=== PATIENT | female | born 1985 | race Two or more races ===

== ENCOUNTER 2018-07-09 21:10 | Emergency (ER) | payer OTHER ==
[~2018-07-09] VITALS: Ht 157.5 cm; Wt 57.2 kg
[~2018-07-09 21:10] MED LIST: ABILIFY2 MG; BUSPAR30 MG; CIPRO500 MG PO; DEPAKOTE ER500 MG; KETO10TA2 PO; PRILOSEC40 MG; PROSAC; ZANTAC300 MG; ZYPREXA; [UNRECOGNIZED DRUG - OTHER]
== END 2018-07-10 10:02 | disposition home or self-care (01) ==
LOC: ER 21:10
DX: K59.09 Other constipation (principal); R10.32 Left lower quadrant pain

== ENCOUNTER 2019-08-31 18:46 | Emergency (ER) | payer OTHER ==
[~2019-08-31] VITALS: Ht 154.9 cm; Wt 65.8 kg
== END 2019-08-31 23:48 | disposition home or self-care (01) ==
LOC: ER 18:46
DX: H66.93 Otitis media, unspecified, bilateral (principal); R05 Cough; R07.89 Other chest pain

== ENCOUNTER 2020-02-27 06:33 | Emergency (ER) | payer OTHER ==
[~2020-02-27] VITALS: Ht 162.6 cm; Wt 59.0 kg
[2020-02-27] MEDS ORDERED: ARIPIPRAZOLE10 MG PO (06:40)
[2020-02-27] MEDS ORDERED: DIVALPROEX SOD500 MG PO (06:40)
[2020-02-27] MEDS ORDERED: ULTRAM50 MG PO (11:55)
[2020-02-27] MEDS ORDERED: KETO10TA2 PO (11:55)
== END 2020-02-27 13:09 ==
LOC: ER 06:33
DX: N83.291 Other ovarian cyst, right side (principal); R10.31 Right lower quadrant pain; Z20.828 Contact with and (suspected) exposure to other viral communicable diseases

== ENCOUNTER 2022-09-17 11:41 | Inpatient (IN) | payer OTHER ==
[~2022-09-17] VITALS: Ht 157.5 cm; Wt 63.5 kg
[~2022-09-17 11:41] MED LIST changes: +ARIPIPRAZOLE10 MG PO; +DIVALPROEX SOD500 MG PO; +ULTRAM50 MG PO
[2022-09-17] MEDS ORDERED: LEVOTHYROXINE25 MCG (11:46)
--- NOTE | 2022-09-17 11:48 | NUR ---
PTE ALERTA Y ORIENTADA POR SANTANA ESFERAS CON BUEN PATRON RESPIRATORIO. SE OBSERVA ANSIOSA. REFIERE QUE ESTABA EN LA DE UN FAMILIAR CUANDO EMPEZO A TENER UN SEIZURE, TUVO 3 EP DE VOMITOS Y TIENE DOLOR ABDOMINAL. PTE CON HX DE EPILEPSIA
--- NOTE | 2022-09-17 12:42 | NUR ---
HARSHIL WRAY ORIENTA A FAMILIAR SOBRE EL TRATAMIENTO ORDENADO POR EL DR REMY PTE ORIENTADA EN PERSONA HARSHIL CHAPIN REALIZA MUESTRAS DE LABORATORIO Y ADMINISTRA MEDICAMENTO JAYA ORDENADO.
--- NOTE | 2022-09-17 16:16 | NUR ---
PACIENTE ESPERANDO POR FAMILIAR PARA FIRMAR EL THOMAS
--- NOTE | 2022-09-17 23:03 | NUR ---
SE RECIBE PACIENTE FEMENINA ALERTA Y ORIENTADA X3 EN CAMILL #10 CON BARRANDAS ELEVADAS. ARE DE VENOPUNCION PATENTE VIVIAN DE EDEMA Y ENROJECIMIENTO. SE LE LIZZY EN TODO MOMENTO PRIEVACIDAD Y SEGURIDAD.
--- NOTE | 2022-09-18 02:18 | NUR ---
PACIENTE ALERTA Y ORIENTADA X3. SE ORIENTA SOBRE TX A RECIBIR Y REFIRIO ENTENDER. SE ADMINISTRA MEDICAMENTOS ORDENADOS POR MD. SE MANTIENE BAJO OBSERVACION POR CAMBIOS SIGNIFICATIVOS. PACIENTE CONSULTADA CON CIRUJANO.
== END 2022-09-24 15:00 | disposition home or self-care (01) | DRG 694 ==
LOC: ER 11:41 → SURH 09-18 13:42
PROVIDERS: ADMIT Internal Medicine; ATTEND Internal Medicine
DX: N20.0 Calculus of kidney (principal); G40.802 Other epilepsy, not intractable, without status epilepticus; F79 Unspecified intellectual disabilities; E03.9 Hypothyroidism, unspecified

== ENCOUNTER 2025-01-12 10:51 | Emergency (ER) | payer OTHER ==
[~2025-01-12] VITALS: Ht 157.5 cm; Wt 73.9 kg
[~2025-01-12 10:51] MED LIST changes: +LEVOTHYROXINE25 MCG
[2025-01-12 11:35] VITALS: BP 128/89; O2SAT 98
[2025-01-12] MEDS ORDERED: KETOROLAC TROMETHAMINE 30 MG VIAL IM ONE (12:00)
[2025-01-12] MEDS ORDERED: KETOROLAC TROMETHAMINE 30 MG VIAL ONE (12:31)
[2025-01-12 12:45] LABS: BASO % 0.4 % (0.1-1.2); EOS # 0.04 (0.04-0.54); EOS % 0.5 % (0.7-7.0); LYMPH # 2.52 (1.18-3.74); LYMPH % 30.7 % (19.3-53.1); MEAN PLATELET VOLUME 12.10 fl (9.4-12.4); MONO # 0.54 (0.24-0.82); MONO % 6.6 % (4.7-12.5); NEUT # 5.05 (1.56-6.13); NEUT % 61.4 % (34.0-71.1); RED CELL DISTRIBUTION WIDTH 12.1 % (11.6-14.4)
[2025-01-12 13:10] LABS: BUN CREA RATIO 16.0 (7.0-25.0); CREATININE SERUM 0.76 mg/dL (0.55-1.02); GFR 84.29; GLUCOSE FASTING 100.0 mg/dL (65-100); OSMOLALITY SERUM 277.0 MOSM/KG (275-295)
[2025-01-12 14:52] LABS: URINE APPEARANCE Clear; URINE BILIRRUBIN Negative (NEGATIVE); URINE BLOOD Negative; URINE COLOR Yellow; URINE GLUCOSE Negative (NEGATIVE); URINE KETONE Trace (NEGATIVE); URINE LEUKOCYTE Negative; URINE NITRATE Negative; URINE PROTEIN Negative (NEGATIVE); URINE UROBILINOGEN 0.2 E.U./dl
[2025-01-12 14:56] LABS: URINE BACTERIA 40.7 uL (0.0-1933); URINE EPITHELIAL CELLS 4.4 uL (0.0-38.8); URINE RBC 4.3 uL (0.0-20.8); URINE WBC 2.1 uL (0.0-23.2)
[2025-01-12 14:59] LABS: URINE CAST 0.00 uL (0.0-1.40)
== END 2025-01-12 15:39 | disposition home or self-care (01) ==
LOC: ER 10:51
PROVIDERS: Emergency Medicine
DX: R10.2 Pelvic and perineal pain (principal); E03.9 Hypothyroidism, unspecified
CPT/HCPCS: 36415; 76856; 96372; 99283; J1885